=== PATIENT | male | born 1950 | race Caucasian/White ===

== ENCOUNTER 2017-06-04 07:03 | Observation (INO) | payer MEDICARE, OTHER ==
[2017-06-04] MEDS ORDERED: Sodium Chloride 0.9% 2.5 ML Syringe FLUSH PRN (07:28)
[2017-06-04] MEDS ORDERED: Sodium Chloride 0.9% 1,000 ML IV ONE (07:28)
[2017-06-04] MEDS ORDERED: Sodium Chloride 0.9% 10 ML Syringe FLUSH PRN (07:28)
--- NOTE | 2017-06-04 07:53 | EDM.PDOC ---
ED HPI GENERAL MEDICAL PROBLEM - General Chief Complaint: Gastrointestinal Problem Stated Complaint: BLEEDING Time Seen by Provider: 06/04/17 07:07 Source of Information: Reports: Patient History Limitations: Reports: No Limitations - History of Present Illness INITIAL COMMENTS - FREE TEXT/NARRATIVE: History of present illness: []Patient had a colonoscopy yesterday with removal of 2 small polyps [place] and has had 2 episodes of passing blood from his rectum without stool. He denies any abdominal pain, fevers, nausea or vomiting. He called his doctor in [place] and was told to come to the emergency room if you need to bleed. He had a third episode of passing blood this morning and came straight to the ER. Denies any dizziness or lightheadedness. Review of systems: As per history of present illness and below otherwise all systems reviewed and negative. Past medical history: As per history of present illness and as reviewed below otherwise noncontributory. Surgical history: As per history of present illness and as reviewed below otherwise noncontributory. Social history: No reported history of drug or alcohol abuse. Family history: As per history of present illness and as reviewed below otherwise noncontributory. Physical exam: General: Well developed, well nourished in NAD HEENT: Atraumatic, normocephalic, pupils reactive, negative for conjunctival pallor or scleral icterus, mucous membranes moist, throat clear, neck supple, nontender, trachea midline. Lungs: Clear to auscultation, breath sounds equal bilaterally, chest nontender. Heart: S1S2, regular, negative for clicks, rubs, or JVD. Abdomen: Soft, nondistended, nontender. Negative for masses or hepatosplenomegaly. Negative for costovertebral tenderness. Pelvis: Stable nontender. Genitourinary: Deferred. Rectal: Dark bloody stool in the ED Extremities: Atraumatic, negative for cords or calf pain. Neurovascular unremarkable. Neuro: Awake, alert, oriented. Cranial nerves II through XII unremarkable. Cerebellum unremarkable. Motor and sensory unremarkable throughout. Exam nonfocal. Diagnostics: []Vital signs CBC are normal Therapeutics: []IV hydrated, consulted general surgery Dr. Bennett will see the patient in the ED Impression: []Post procedural bleeding-colonoscopy Plan: []Dr. Bennett requested a CTA of the abdomen and pelvis and will be admitting this patient for observation Definitive disposition and diagnosis as appropriate pending reevaluation and review of above. - Related Data Allergies Allergy/AdvReac Type Severity Reaction Status Date / Time No Known Allergies Allergy Verified 06/04/17 07:22 Home Meds: Home Meds Tamsulosin [Flomax] 0.4 mg PO DAILY 06/04/17 [History] Past Medical History HEENT History: Reports: None Cardiovascular History: Reports: None Respiratory History: Reports: None Gastrointestinal History: Reports: Colon Polyp Genitourinary History: Reports: BPH Musculoskeletal History: Reports: None Neurological History: Reports: None Psychiatric History: Reports: None Endocrine/Metabolic History: Reports: None Dermatologic History: Reports: None - Past Surgical History HEENT Surgical History: Reports: None, Tonsillectomy GI Surgical History: Reports: Colonoscopy Musculoskeletal Surgical History: Reports: None Social & Family History - Tobacco Use Smoking Status *Q: Light Tobacco Smoker Years of Tobacco use: 40 Packs/Tins Daily: 0.1 ED ROS GENERAL - Review of Systems Review Of Systems: See Below (See history of present illness) ED EXAM, GI/ABD - Physical Exam Exam: See Below (See history of present illness) Course - Vital Signs Last Recorded V/S: Last Vital Signs Temp 36.6 C 06/04/17 10:27 Pulse 90 06/04/17 10:27 Resp 16 06/04/17 10:27 BP 139/78 06/04/17 10:27 Pulse Ox 97 06/04/17 10:27 - Orders/Labs/Meds Orders: Active Orders 24 hr Category Date Time Status Sodium Chloride 0.9% [Saline Flush] Med 06/04/17 07:28 Active 10 ml FLUSH ASDIRECTED PRN Sodium Chloride 0.9% [Saline Flush] Med 06/04/17 07:28 Active 2.5 ml FLUSH ASDIRECTED PRN Saline Lock Insert [OM.PC] Stat Oth 06/04/17 07:28 Ordered Medication Orders Lactated Ringer's (Ringers, Lactated) 1,000 mls @ 125 mls/hr IV ASDIRECTED ANJU Last Admin: 06/04/17 09:13 Dose: 125 mls/hr Pantoprazole Sodium 40 mg/ (Sodium Chloride) 10 mls @ 5 mls/min IVPUSH DAILY ANJU Last Admin: 06/04/17 08:55 Dose: 5 mls/min Sodium Chloride (Saline Flush) 10 ml FLUSH ASDIRECTED PRN PRN Reason: Keep Vein Open Sodium Chloride (Saline Flush) 2.5 ml FLUSH ASDIRECTED PRN PRN Reason: Keep Vein Open Labs: Laboratory Tests 06/04/17 06/04/17 06/04/17 Range/Units 07:29 07:29 07:29 WBC 7.16 (4.0-11.0) K/uL RBC 4.74 (4.50-5.90) M/uL Hgb 14.7 (13.0-17.0) g/dL Hct 42.1 (38.0-50.0) % MCV 88.8 (80.0-98.0) fL MCH 31.0 (27.0-32.0) pg MCHC 34.9 (31.0-37.0) g/dL RDW Std Deviation 43.7 (28.0-62.0) fl RDW Coeff of Reyes 13 (11.0-15.0) % Plt Count 225 (150-400) K/uL MPV 10.20 (7.40-12.00) fL Neut % (Auto) 70.5 (48.0-80.0) % Lymph % (Auto) 22.5 (16.0-40.0) % [place] % (Auto) 5.9 (0.0-15.0) % Eos % (Auto) 0.8 (0.0-7.0) % Baso % (Auto) 0.3 (0.0-1.5) % Neut # (Auto) 5.1 (1.4-5.7) K/uL Lymph # (Auto) 1.6 (0.6-2.4) K/uL [place] # (Auto) 0.4 (0.0-0.8) K/uL Eos # (Auto) 0.1 (0.0-0.7) K/uL Baso # (Auto) 0.0 (0.0-0.1) K/uL Nucleated RBC % 0.0 /100WBC Nucleated RBCs # 0 K/uL INR 1.07 (0.86-1.11) APTT 28.5 (18.6-31.3) SEC Sodium (136-146) mmol/L Potassium (3.5-5.1) mmol/L Chloride (98-110) mmol/L Carbon Dioxide (21-31) mmol/L BUN (6.0-23.0) mg/dL Creatinine (0.6-1.5) mg/dL Est Cr Clr Drug Dosing mL/min Estimated GFR (MDRD) ml/min Glucose (60-110) mg/dL Calcium (8.8-10.8) mg/dL Total Bilirubin (0.1-1.5) mg/dL AST (5-40) IU/L ALT (8-54) IU/L Alkaline Phosphatase (40-150) Total Protein (6.0-8.0) g/dL Albumin (3.4-4.8) g/dL Globulin (2.0-3.5) g/dL Albumin/Globulin Ratio (1.3-2.8) Blood Type O POSITIVE Antibody Screen NEGATIVE 06/04/17 Range/Units 07:59 WBC (4.0-11.0) K/uL RBC (4.50-5.90) M/uL Hgb (13.0-17.0) g/dL Hct (38.0-50.0) % MCV (80.0-98.0) fL MCH (27.0-32.0) pg MCHC (31.0-37.0) g/dL RDW Std Deviation (28.0-62.0) fl RDW Coeff of Reyes (11.0-15.0) % Plt Count (150-400) K/uL MPV (7.40-12.00) fL Neut % (Auto) (48.0-80.0) % Lymph % (Auto) (16.0-40.0) % [place] % (Auto) (0.0-15.0) % Eos % (Auto) (0.0-7.0) % Baso % (Auto) (0.0-1.5) % Neut # (Auto) (1.4-5.7) K/uL Lymph # (Auto) (0.6-2.4) K/uL [place] # (Auto) (0.0-0.8) K/uL Eos # (Auto) (0.0-0.7) K/uL Baso # (Auto) (0.0-0.1) K/uL Nucleated RBC % /100WBC Nucleated RBCs # K/uL INR (0.86-1.11) APTT (18.6-31.3) SEC Sodium 139 (136-146) mmol/L Potassium 3.9 (3.5-5.1) mmol/L Chloride 109 (98-110) mmol/L Carbon Dioxide 23 (21-31) mmol/L BUN 15 (6.0-23.0) mg/dL Creatinine 1.0 (0.6-1.5) mg/dL Est Cr Clr Drug Dosing 78.44 mL/min Estimated GFR (MDRD) > 60.0 ml/min Glucose 100 (60-110) mg/dL Calcium 9.0 (8.8-10.8) mg/dL Total Bilirubin 0.9 (0.1-1.5) mg/dL AST 22 (5-40) IU/L ALT 24 (8-54) IU/L Alkaline Phosphatase 54 (40-150) Total Protein 6.8 (6.0-8.0) g/dL Albumin 4.0 (3.4-4.8) g/dL Globulin 2.8 (2.0-3.5) g/dL Albumin/Globulin Ratio 1.4 (1.3-2.8) Blood Type Antibody Screen Meds: Medications Generic Name Dose Route Start Last Admin Trade Name Freq PRN Reason Stop Dose Admin Lactated Ringer's 1,000 mls @ 125 mls/hr 06/04/17 08:45 06/04/17 09:13 Ringers, Lactated IV 125 mls/hr ASDIRECTED ANJU Administration Pantoprazole Sodium 40 mg/ 10 mls @ 5 mls/min 06/04/17 09:00 06/04/17 08:55 Sodium Chloride IVPUSH 5 mls/min DAILY ANUJ Administration Sodium Chloride 10 ml 06/04/17 07:28 Saline Flush FLUSH ASDIRECTED PRN Keep Vein Open Sodium Chloride 2.5 ml 06/04/17 07:28 Saline Flush FLUSH ASDIRECTED PRN Keep Vein Open Discontinued Medications Generic Name Dose Route Start Last Admin Trade Name Freq PRN Reason Stop Dose Admin Sodium Chloride 1,000 mls @ 999 mls/hr 06/04/17 07:28 06/04/17 07:44 Normal Saline IV 06/04/17 08:28 999 mls/hr .Bolus ONE Administration Iopamidol 110 ml 06/04/17 09:29 06/04/17 09:36 Isovue Multipack-370 (76%) IVPUSH 06/04/17 09:30 100 ml ONETIME STA Administration Departure - Departure Time of Disposition: 10:38 Disposition: Admitted As Inpatient 68 Condition: Good Clinical Impression: Postprocedural hemorrhage Qualifiers: Surgical complication system/body Area: digestive system Procedure type: digestive system Qualified Code(s): K91.840 - Postprocedural hemorrhage of a digestive system organ or structure following a digestive system procedure - Discharge Information - My Orders Last 24 Hours: My Active Orders 06/04/17 07:28 Sodium Chloride 0.9% [Saline Flush] 10 ml FLUSH ASDIRECTED PRN Sodium Chloride 0.9% [Saline Flush] 2.5 ml FLUSH ASDIRECTED PRN Saline Lock Insert [OM.PC] Stat - Assessment/Plan Last 24 Hours: My Active Orders 06/04/17 07:28 Sodium Chloride 0.9% [Saline Flush] 10 ml FLUSH ASDIRECTED PRN Sodium Chloride 0.9% [Saline Flush] 2.5 ml FLUSH ASDIRECTED PRN Saline Lock Insert [OM.PC] Stat
[2017-06-04] MEDS ORDERED: Lactated Ringers 1,000 ML IV SCH (08:45)
[2017-06-04] MEDS ORDERED: Pantoprazole 40 MG in Sodium Chloride 0.9% 10 ML IVPUSH SCH (09:00)
[2017-06-04 09:13] LABS: CHLORIDE,CL 109 mmol/L (98-110); SODIUM,NA 139 mmol/L (136-146)
[2017-06-04] MEDS ORDERED: Iopamidol 755 MG/ML 500 ML Multipack Bottle IVPUSH STA (09:29)
--- NOTE | 2017-06-04 10:19 | CT ---
EXAMINATION: CTA abdomen and pelvis HISTORY: Bleeding status post colonoscopy COMPARISON: None TECHNIQUE: Axial CT images obtained through the abdomen and pelvis following the administration 100 m L of Isovue-370 in the left antecubital fossa. Coronal and sagittal reconstructions obtained. FINDINGS: The lung bases are clear, no pleural effusion. There is a vague 1.3 cm subcapsular hypodensity within the anterior right hepatic lobe. The spleen, a drenal glands, and pancreas appear grossly unremarkable. The gallbladder is normal. No bulky retroper itoneal lymphadenopathy or abdominal ascites. The kidneys enhance and function symmetrically without evidence of obstructive uropathy. The large and small bowel are normal in caliber without evidence of obstruction. No focal pericolonic inflammation or stranding. No definite evidence of an intraluminal hemorrhage. No free air. Urinary bladder is normal. The prostate is enlarged. No bulky pelvic lymphadenopathy or free pelvic fluid. Th e abdominal aorta and proximal branches appear normal. There is grade 1 anterolisthesis of L5 on S1 with chronic bilateral spondylolysis. IMPRESSION: 1. No acute findings within the abdomen or pelvis. 2. Small 1.3 cm hypodensity within the right hepatic lobe, follow-up with a hepatic protocol CT or MR I may be beneficial. 3. Grade 1 anterolisthesis of L5 on S1 with bilateral spondylolysis.
--- NOTE | 2017-06-04 18:04 | PCM.DCSUM1 ---
Discharge Summary - Hospital Course Free Text/Narrative:: Patient is a 67-year-old male who presented to emergency room this morning with dark maroon stools. He had a colonoscopy yesterday in [place]. He had 2 small polyps removed. One hour after the procedure he passed dark bloody stool. He was told this is normal and discharged home. The patient had a vacation planned here in town but overnight had 2-3 more bloody bowel movements. He complains of tenesmus and fecal urgency. He denies any weakness, dizziness, or lightheadedness. He denies any nausea or vomiting. He denies abdominal pain. He denies fevers or chills. His hemoglobin upon admission was 14. His vital signs were stable. On physical exam he had no evidence of abdominal distention or tenderness. A digital rectal exam revealed maroon colored stool with scattered clots. A CT the abdomen pelvis was performed that showed no evidence of colonic wall thickening or extravasation of contrast material to suggest an active bleed. He was admitted for observation Nothing by mouth, given IV fluids. He had a recheck of his hemoglobin at noon which is relatively stable. His vital signs stayed stable. I checked on him this afternoon and his tenesmus/fecal urgency had subsided. He has had no further bowel movements and subjectively feels much better. He is hungry and would like to eat. He tolerated a regular diet and was discharged home. He should follow up with his primary GI physician in [place]. - Discharge Data Discharge Date: 06/04/17 Discharge Disposition: Home, Self-Care 01 Condition: Good - Discharge Diagnosis/Problem(s) (1) Postprocedural hemorrhage SNOMED Code(s): 751158289 ICD Code: [id number] - Status: Acute Qualifiers: Surgical complication system/body Area: digestive system Procedure type: digestive system Qualified Code(s): K91.840 - Postprocedural hemorrhage of a digestive system organ or structure following a digestive system procedure - Patient Instructions Diet: Regular Diet as Tolerated Activity: Rest and Relax Today Driving: May Drive Today Showering/Bathing: May Shower Notify Provider of: Increased Pain, Nausea and/or Vomiting - Discharge Plan Home Medications: Home Meds Tamsulosin [Flomax] 0.4 mg PO DAILY 06/04/17 [History] Patient Handouts: Gastrointestinal Bleeding - General Info Date of Service: 06/04/17 Functional Status: Reports: Pain Controlled, Tolerating Diet, Ambulating, Urinating - Review of Systems General: Reports: No Symptoms Pulmonary: Reports: No Symptoms Cardiovascular: Reports: No Symptoms Gastrointestinal: Reports: No Symptoms - Patient Data Vitals - Most Recent: Last Vital Signs Temp 35.9 C 06/04/17 16:09 Pulse 90 06/04/17 16:09 Resp 20 06/04/17 16:09 BP 137/81 06/04/17 16:09 Pulse Ox 94 L 06/04/17 16:09 Weight - Most Recent: 37.195 kg I&O - Last 24 hours: Intake & Output 06/04/17 06/04/17 06/04/17 06:59 14:59 22:59 Intake Total 710 Output Total 400 Balance 310 Lab Results - Last 24 hrs: Laboratory Results - last 24 hr 06/04/17 Range/Units 12:03 Hgb 13.5 (13.0-17.0) g/dL Hct 39.5 (38.0-50.0) % Med Orders - Current: Current Medications Discontinued Medications Sodium Chloride (Normal Saline) 1,000 mls @ 999 mls/hr IV .Bolus ONE Stop: 06/04/17 08:28 Last Admin: 06/04/17 07:44 Dose: 999 mls/hr Lactated Ringer's (Ringers, Lactated) 1,000 mls @ 125 mls/hr IV ASDIRECTED ANJU Last Admin: 06/04/17 09:13 Dose: 125 mls/hr Pantoprazole Sodium 40 mg/ (Sodium Chloride) 10 mls @ 5 mls/min IVPUSH DAILY [facility] Last Admin: 06/04/17 08:55 Dose: 5 mls/min Iopamidol (Isovue Multipack-370 (76%)) 110 ml IVPUSH ONETIME STA Stop: 06/04/17 09:30 Last Admin: 06/04/17 09:36 Dose: 100 ml Sodium Chloride (Saline Flush) 10 ml FLUSH ASDIRECTED PRN PRN Reason: Keep Vein Open Sodium Chloride (Saline Flush) 2.5 ml FLUSH ASDIRECTED PRN PRN Reason: Keep Vein Open - Exam General: Reports: Alert, Oriented Lungs: Reports: Normal Respiratory Effort Cardiovascular: Reports: Regular Rate GI/Abdominal Exam: Soft, Non-Tender, No Organomegaly, No Distention *Q Meaningful Use (DIS) - VTE *Q VTE Criteria *Q: - Stroke *Q Stroke Criteria *Q: - AMI *Q AMI Criteria *Q:
--- NOTE | 2017-06-04 18:12 | PCM.HP ---
H&P History of Present Illness - General Date of Service: 06/04/17 Admit Problem/Dx: GI bleed Source of Information: Patient History Limitations: Reports: No Limitations - History of Present Illness Initial Comments - Free Text/Narative: Patient is a 67-year-old male who presented to emergency room this morning with dark maroon stools. He had a colonoscopy yesterday in [place]. He had 2 small polyps removed. One hour after the procedure he passed dark bloody stool. He was told this is normal and discharged home. The patient had a vacation planned here in town but overnight had 2-3 more bloody bowel movements. He complains of tenesmus and fecal urgency. He denies any weakness, dizziness, or lightheadedness. He denies any nausea or vomiting. He denies abdominal pain. He denies fevers or chills. His hemoglobin upon admission was 14. His vital signs were stable. On physical exam he had no evidence of abdominal distention or tenderness. A digital rectal exam revealed maroon colored stool with scattered clots. A CT the abdomen pelvis was performed that showed no evidence of colonic wall thickening or extravasation of contrast material to suggest an active bleed. - Related Data Allergies/Adverse Reactions: Allergies Allergy/AdvReac Type Severity Reaction Status Date / Time No Known Allergies Allergy Verified 06/04/17 07:22 Home Medications: Home Meds Tamsulosin [Flomax] 0.4 mg PO DAILY 06/04/17 [History] Past Medical History HEENT History: Reports: None Cardiovascular History: Reports: None Respiratory History: Reports: None Gastrointestinal History: Reports: Colon Polyp Genitourinary History: Reports: BPH Other Genitourinary History: Pt has had similar episodes of being unable to void 2-3 times in the past, the last episode was about 6-7 years ago. Musculoskeletal History: Reports: None Neurological History: Reports: None Psychiatric History: Reports: None Endocrine/Metabolic History: Reports: None Dermatologic History: Reports: None - Infectious Disease History Infectious Disease History: Reports: Chicken Pox, Measles, Mumps - Past Surgical History HEENT Surgical History: Reports: None, Tonsillectomy GI Surgical History: Reports: Colonoscopy Musculoskeletal Surgical History: Reports: None Social & Family History - Family History Oncologic: Reports: Liver - Tobacco Use Smoking Status *Q: Light Tobacco Smoker Years of Tobacco use: 40 Packs/Tins Daily: 0.1 Used Tobacco, but Quit: Yes Month Tobacco Last Used: 25 yrs ago Second Hand Smoke Exposure: No - Caffeine Use Caffeine Use: Reports: Coffee - Alcohol Use Days Per Week of Alcohol Use: 2 Number of Drinks Per Day: 2 Total Drinks Per Week: 4 - Recreational Drug Use Recreational Drug Use: No H&P Review of Systems - Review of Systems: Review Of Systems: ROS reveals no pertinent complaints other than HPI. Exam - Exam Exam: See Below - Vital Signs Vital Signs: Last Vital Signs Temp 35.9 C 06/04/17 16:09 Pulse 90 06/04/17 16:09 Resp 20 06/04/17 16:09 BP 137/81 06/04/17 16:09 Pulse Ox 94 L 06/04/17 16:09 Weight: 37.195 kg - Exam General: Alert, Oriented HEENT: Conjunctiva Clear, Hearing Intact, Mucosa Moist & Stokes, Nares Patent, Normal Nasal Septum, Posterior Pharynx Clear Neck: Supple, Trachea Midline Lungs: Clear to Auscultation, Normal Respiratory Effort Cardiovascular: Regular Rate, Regular Rhythm GI/Abdominal Exam: Normal Bowel Sounds, Soft, Non-Tender, No Distention Rectal (Males) Exam: Normal Rectal Tone, Bloody Stool Back Exam: Normal Inspection Extremities: Normal Inspection, Normal Range of Motion, Non-Tender - Patient Data Lab Results Last 24 hrs: Laboratory Results - last 24 hr 06/04/17 Range/Units 12:03 Hgb 13.5 (13.0-17.0) g/dL Hct 39.5 (38.0-50.0) % Result Diagrams: 06/04/17 12:03 06/04/17 07:59 *Q Meaningful Use (ADM) - VTE *Q VTE Criteria *Q: - Stroke *Q Stroke Criteria *Q: - AMI *Q AMI Criteria *Q: - Problem List (1) Postprocedural hemorrhage SNOMED Code(s): 354538789 ICD Code: [id number] - Status: Acute Qualifiers: Surgical complication system/body Area: digestive system Procedure type: digestive system Qualified Code(s): K91.840 - Postprocedural hemorrhage of a digestive system organ or structure following a digestive system procedure Problem List Initiated/Reviewed/Updated: Yes Orders Last 24hrs: Active Orders 24 hr Category Date Time Status Ready for Discharge [RC] PER UNIT ROUTINE Care 06/04/17 15:05 Active Assessment/Plan Comment:: Given the patient's bleeding overnight I will observe him in the hospital and monitor his hemoglobin every 6 hours. I will keep him NPO, continue MIVF, and see if he stays stable.
== END 2017-06-04 16:35 | disposition home or self-care (01) ==
LOC: MW.ED 07:03 → MW.MS 08:35
PROVIDERS: ADMIT Surgery; ATTEND Surgery
DX: K91.840 Postprocedural hemorrhage of a digestive system organ or structure following a digestive system procedure (principal); N40.0 Benign prostatic hyperplasia without lower urinary tract symptoms; F17.210 Nicotine dependence, cigarettes, uncomplicated; Z86.010 Personal history of colon polyps; Z90.89 Acquired absence of other organs; Z98.890 Other specified postprocedural states; Z79.899 Other long term (current) drug therapy
CPT/HCPCS: 36415; 74174; 80053; 85014; 85018; 85025; 85610; 85730; 86850; 86900; 86901; 96361; 96375; 99285; C9113; G0378; J7040; J7120; Q9967; 96365; 96374; 99283